=== PATIENT | female | born 1990 | race Caucasian/White ===

== ENCOUNTER 2019-03-13 12:10 | Emergency (ER) | payer OTHER ==
[~2019-03-13] VITALS: Ht 154.9 cm; Wt 62.0 kg
[2019-03-13 12:35] VITALS: BP 105/70
== END 2019-03-13 13:59 | disposition home or self-care (01) ==
LOC: ED 13:45
DX: J02.9 Acute pharyngitis, unspecified (principal); M79.10 Myalgia, unspecified site
CPT/HCPCS: 96372; 99283; J1100

== ENCOUNTER 2020-04-23 16:03 | Emergency (ER) | payer MEDICAID, OTHER ==
[~2020-04-23] VITALS: Ht 154.9 cm; Wt 65.0 kg
--- NOTE | 2020-04-23 16:33 | NUR ---
THIS IS A 30 YO FEMALE COMING IN FOR MILD ABD CRAMPING AND MILD VAGINAL BLEEDING STARTING MONDAY. PATIENT STATES + TEST MONDAY AND MONDAY. PATIENT STATES BLEEDING HAS BEEN INTERMITTENT AND LIGHT PINK/LIGHT RED, NOTICED A LITTLE MORE BLOOD TODAY WHILE WIPING. PATIENT IS , LAST 5 YEARS AGO WITHOUT COMPLICATIONS. DENIES N/V. DENIES MEDICAL HX. A&OX4, VSS, NADN AT THIS TIME. CALL LIGHT IN REACH
--- NOTE | 2020-04-23 16:38 | NUR ---
ER PA TO ROOM FOR EVAL
--- NOTE | 2020-04-23 17:15 | NUR ---
PATIENT IN ULTRASOUND
[2020-04-23 17:37] VITALS: BP 120/79
[2020-04-23 17:44] LABS: BASOPHILS # (AUTO) 0.03 x10^3/uL (0-0.1); BASOPHILS % (AUTO) 0 % (0-1); EOSINOPHILS # (AUTO) 0.14 x10^3/uL (0-0.4); EOSINOPHILS % (AUTO) 2 % (1-7); LYMPHOCYTES # (AUTO) 2.37 x10^3/uL (1-3.4); LYMPHOCYTES % (AUTO) 26 % (22-44); MD NO; MEAN CORPUSCULAR HEMOGLOBIN 30.7 pg (27.0-34.8); MEAN CORPUSCULAR HGB CONC 33.4 g/dL (32.4-35.8); MEAN PLATELET VOLUME 8.9 fL (7.4-10.4); MONOCYTES # (AUTO) 0.74 x10^3/uL (0.2-0.8); MONOCYTES % (AUTO) 8 % (2-9); NEUTROPHILS # (AUTO) 5.84 x10^3/uL (1.8-6.8); NEUTROPHILS % (AUTO) 64 % (42-75); PLATELET COUNT 396 x10^3/uL (130-400); RED BLOOD COUNT 4.53 x10^6/uL (3.82-5.3); RED CELL DISTRIBUTION WIDTH 12.9 % (9.6-15.2)
[2020-04-23 17:55] LABS: MICROSCOPIC AUTO
--- NOTE | 2020-04-23 17:57 | NUR ---
PATIENT RESTING ON GURNEY, RESPIRATIONS EVEN AND UNLABORED. VSS, NADN AT THIS TIME. LAB RESULTS PENDING
--- NOTE | 2020-04-23 18:49 | NUR ---
Patient given discharge instructions and they have confirmed that they understand the instructions. Patient ambulatory with steady gait.
== END 2020-04-23 18:50 | disposition home or self-care (01) ==
LOC: ED 16:50
DX: O34.81 Maternal care for other abnormalities of pelvic organs, first trimester (principal); N83.291 Other ovarian cyst, right side; R10.2 Pelvic and perineal pain; Z3A.01 Less than 8 weeks gestation of pregnancy
CPT/HCPCS: 36415; 76801; 81001; 84702; 85025; 86901; 99284